=== PATIENT | male | born 1970 | race Caucasian/White ===

== ENCOUNTER 2022-03-07 16:33 | Inpatient (IN) | payer MEDICAID ==
[~2022-03-07] VITALS: Ht 170.2 cm; Wt 113.4 kg
[2022-03-07 20:02] LABS: BASOPHILS # (AUTO) 0.1 K/uL (0.0-0.2); BASOPHILS % (AUTO) 1.9 % (0.0-2.0); EOSINOPHILS # (AUTO) 0.3 K/uL (0.0-0.4); EOSINOPHILS % (AUTO) 9.6 % (0.0-4.0); HEMATOCRIT 26.6 % (36-54); HEMOGLOBIN 9.1 g/dL (14.0-18.0); LYMPHOCYTES # (AUTO) 0.8 K/uL (1.0-5.5); LYMPHOCYTES % (AUTO) 22.5 % (20.5-51.5); MEAN CORPUSCULAR HEMOGLOBIN 32 pg (27-31); MEAN CORPUSCULAR HGB CONC 34 % (32-36); MEAN CORPUSCULAR VOLUME 93 fL (79.0-98.0); MONOCYTES # (AUTO) 0.4 K/uL (0.0-1.0); MONOCYTES % (AUTO) 10.1 % (1.7-9.3); NEUTROPHILS # (AUTO) 1.9 K/uL (1.8-7.7); NEUTROPHILS % (AUTO) 55.9 % (40.0-70.0); PLATELET COUNT (AUTO) 99 K/uL (130-430); RED BLOOD CELL COUNT(AUTO) 2.86 MIL/uL (4.2-6.2); RED CELL DISTRIBUTION WIDTH 26.2 % (9.0-15.0); WHITE BLOOD COUNT (AUTO) 3.5 K/uL (4.8-10.8)
[2022-03-07 20:11] LABS: ANION GAP 11 (5-15); CALCIUM 8.7 mg/dL (8.4-11.0); CHLORIDE 108 mmol/L (98-107); CREATININE 0.84 mg/dL (0.55-1.30); GLUCOSE 85 mg/dL (70-99); UREA NITROGEN, BLOOD 14 mg/dL (8-21)
[2022-03-07 20:13] LABS: GFR AFRICAN AMERICAN 125 mL/min (>90)
[2022-03-07 20:20] LABS: ALANINE AMINOTRANSFERASE 19 U/L (12-78); ALCOHOL, BLOOD < 3 mg/dL (<10); ASPARTATE AMINOTRANSFERASE 41 U/L (10-37); INR 1.5 (0.80-1.20); PROTHROMBIN TIME 15.3 SECS (9.5-12.5); TOTAL BILIRUBIN 3.5 mg/dL (0.0-1.0)
[2022-03-07] MEDS ORDERED: LACTULOSE 20 GM/30 ML UDC RC ONE (20:45)
[2022-03-07 21:13] VITALS: BP_SYST 139
--- NOTE | 2022-03-07 21:23 | NUR ---
Patient to ER bed 05 to gown for evaluation. Side rails up. Report given to TY WHALEN.
--- NOTE | 2022-03-07 22:54 | NUR ---
Pt BIB BLS ambulance from [facility] with c/o increased agitation and ALOC. Pt noted cursing and yelling for no apparent reason. Attempted to assess pt, but pt was not cooperative at this time. Arrived in no acute distress. Breathing adequately on RA. Connected to monitor.
[2022-03-07] MEDS ORDERED: LACTULOSE 20 GM/30 ML UDC ONE ×2 (23:42→23:57)
--- NOTE | 2022-03-08 00:10 | NUR ---
Attempted to insert IV, but pt was uncooperative.
[2022-03-08] MEDS ORDERED: HALOPERIDOL LACTATE 5 MG/ML VIAL IM ONE (01:15)
--- NOTE | 2022-03-08 02:27 | NUR ---
[facility]
--- NOTE | 2022-03-08 04:42 | NUR ---
Admit bed requested Patient will be admitted to care of Dr. BALLESTEROS. Admitted to TELEMETRY unit. Diagnosis HEPATIC ENCEPHALOPATHY Inpatient (Yes or No) YES Observation (Yes or No) NO Orientation concerns or request close to nursing station (Yes or No) YES Covid Status NEGATIVE On vent or bipap NO Isolation requirements NO Needs a sitter NO From Home (Yes or if No enter name of facility) [facility] Requires Dialysis (Yes or No) NO Med Rec Completed (Yes of No) PENDING
[2022-03-08] MEDS: LACTULOSE 20 GM/30 ML UDC PO SCH ×3 (06:31→17:40)
--- NOTE | 2022-03-08 06:40 | NUR ---
# 22 gauge angiocath placed to R Wrist. Use of asceptic technique. Opsite placed over site. Blood return noted. Flushed with 10 cc of normal saline. No evidence of infiltration noted. Patient tolerated well.
--- NOTE | 2022-03-08 07:13 | NUR ---
Pt report endorsed to MARLEE Ramirez for continuity of care. Questions/Concerns answered.
[2022-03-08] MEDS ORDERED: BACEYEO OP (07:47)
[2022-03-08] MEDS ORDERED: LACT10SO6 PO (07:47)
[2022-03-08] MEDS ORDERED: FERR-69 PO (07:47)
[2022-03-08] MEDS ORDERED: BUME1TAB8 PO (07:47)
--- NOTE | 2022-03-08 07:48 | NUR ---
RECEIVED PT FROM MARLEE CRAWFORD. ASSUMED CARE.
--- NOTE | 2022-03-08 08:40 | NUR ---
ATTEMPTED TO STRAIGHT CATH PT FOR URINE SAMPLE, PT HAS HEALED TRAMA TO PENIS WITH EDEMA. UNABLE TO ACCESS URETHRA. MARLEE GILMORE CHARGE MADE AWARE.
[2022-03-08] MEDS ORDERED: RIFAXIMIN 550 MG TABLET PO ONE (10:00)
--- NOTE | 2022-03-08 10:18 | NUR ---
DR. BALLESTEROS AT BEDSIDE TO ASSESS PT. RECEIVED ORDER FOR DR. NIÑO UROLOGY CONSULT. ORDER CARRIED OUT.
[2022-03-08 10:30] LABS: BILIRUBIN,URINE 1+ (NEGATIVE); BLOOD, URINE NEGATIVE (NEGATIVE); CLARITY/URINE CLEAR (CLEAR); COLOR,URINE YELLOW (YELLOW); GLUCOSE,URINE NEGATIVE (NEGATIVE); KETONES,URINE 1+ (NEGATIVE); LEUKOCYTE ESTERASE ,URINE NEGATIVE (NEGATIVE); NITRITE, URINE NEGATIVE (NEGATIVE); PH,URINE 6.5 (5.0-8.0); PROTEIN URINE NEGATIVE (NEGATIVE)
[2022-03-08 10:39] LABS: BARBITURATE, URINE NEGATIVE (NEG <=200); BENZODIAZEPINE, URINE NEGATIVE (NEG <=150); CANNABINOID, URINE NEGATIVE (NEG <=50); COCAINE, URINE NEGATIVE (NEG <=150); METHAMPHETAMINES SCREEN,URINE NEGATIVE (NEG <=500); OPIATE, URINE POSITIVE (NEG <=100); PHENCYCLIDINE SCREEN,URINE NEGATIVE (NEG <=25); UR TRICYCLIC ANTIDEPRESSANTS NEGATIVE (NEG <=300); URINE AMPHETAMINE NEGATIVE (NEG <=500); URINE METHADONE NEGATIVE (NEG <=200); URINE OXYCODONE SCREEN NEGATIVE (NEG <=100); URINE PROPOXYPHENE SCREEN NEGATIVE (NEG <=300)
[2022-03-08] MEDS ORDERED: POTASSIUM CHLORIDE 20 MEQ/PKT PACKET PO ONE (11:00)
[2022-03-08] MEDS ORDERED: BUME1TAB31 PO (11:30)
[2022-03-08] MEDS ORDERED: ACET-2439 PO (11:30)
[2022-03-08] MEDS ORDERED: LACT10SO7 PO (11:30)
[2022-03-08] MEDS ORDERED: TRAM50TA2 PO (11:30)
[2022-03-08] MEDS ORDERED: POTA20PA30 PO (11:30)
[2022-03-08] MEDS ORDERED: ASPI-524 PO (11:30)
[2022-03-08] MEDS ORDERED: MELA1TAB14 PO (11:30)
[2022-03-08] MEDS ORDERED: SPIR25TA6 PO (11:30)
[2022-03-08] MEDS ORDERED: BACI15OI13 TP (11:30)
[2022-03-08] MEDS ORDERED: PRO40 PO (11:30)
[2022-03-08] MEDS ORDERED: AMLO5TAB4 PO (11:30)
[2022-03-08] MEDS ORDERED: RIFA550T5 PO (11:30)
[2022-03-08] MEDS ORDERED: FERR325T30 PO (11:30)
[2022-03-08 11:40] LABS: INR 1.6 (0.80-1.20)
[2022-03-08] MEDS ORDERED: SPIRONOLACTONE 25 MG TABLET (ALDACTONE) ONE (11:57)
--- NOTE | 2022-03-08 11:57 | NUR ---
PT HAD LARGE LOOSE BM, CLEANED, TURNED AND REPOSITIONED. SCHEDULED MEDS GIVEN AND TOLERATED WELL.
--- NOTE | 2022-03-08 12:00 | NUR ---
ADMISSION: The patient, ELIZABETH JHA, 51 y/o, M admitted by DARIUS BALLESTEROS MD, was given written information regarding hospital policies, unit procedures and contact persons. Obtained VS. Bed in low and locked position call light within reach, bed alarm on
[2022-03-08] MEDS ORDERED: SPIRONOLACTONE 50 MG TABLET (ALDACTONE) PO ONE (12:30)
--- NOTE | 2022-03-08 12:30 | NUR ---
Patient will be admitted to care of MARLEE LYNCH. Admitted to TELEMETRY unit. Will go to room 113B. Belongings list completed. Complete and up to date summary report printed. SBAR report to be given at bedside with opportunity for questions.
[2022-03-08 14:01] VITALS: BP_SYST 150
--- NOTE | 2022-03-08 14:07 | NUR ---
CLARIFICATION OF ORDERS PAGED DR BALLESTEROS FOR CLARIFICATION OF ORDERS NG TUBE VS. REG DIET AND SCD'S. PATIENT HAS 4+ PITTING EDEMA ON BILATERAL LOWER LEGS
--- NOTE | 2022-03-08 14:20 | NUR ---
CONSENT SPOKE WITH BROTHER NITISH ON TELEPHONE, INFORMED THAT HAS ORDERED NG TUBE AND A PICC LINE, BROTHER CONSENTED TO BOTH, SECOND RN VERIFIED
[2022-03-08 16:00] VITALS: BP_SYST 140
--- NOTE | 2022-03-08 17:00 | NUR ---
bm patient incontinent of bowel and bladder. Large BM loose. provided pipe care, changed linens. repositioned patient
--- NOTE | 2022-03-08 17:51 | NUR ---
SPOKE WITH DR BALLESTEROS REGARDING PATIENTS DIET, HOLD ON NG TUBE, AND NEW DIET ORDER GIVEN
--- NOTE | 2022-03-08 19:12 | NUR ---
CLOSING NOTE PROVIDED SBAR TO NIGHT RN. PATIENT IN BED, RESPIRATIONS EVEN, NON LABORED, BED IN LOW AND LOCKED POSITION, CALL LIGHT WITHIN REACH, BED ALARM ON. ENDORSED CARE TO NIGHT RN.
--- NOTE | 2022-03-08 19:15 | NUR ---
OPENING NOTES Patient resting in bed - no s/s pain or distress noted. Respirations even and unlabored - head of bed elevated. IV site patent - no s/s redness, infection, or infiltration. Bed locked and in lowest position. Call light within reach - bed alarm on.
[2022-03-08 20:00] VITALS: BP_SYST 128
[2022-03-08] MEDS: RIFAXIMIN 550 MG TABLET PO SCH (20:25)
[2022-03-08] MEDS: SPIRONOLACTONE 50 MG TABLET (ALDACTONE) PO SCH (20:25)
[2022-03-09] MEDS: LACTULOSE 20 GM/30 ML UDC PO SCH ×4 (01:41→18:29)
[2022-03-09 01:54] VITALS: BP_SYST 119
--- NOTE | 2022-03-09 07:49 | NUR ---
CLOSING NOTES Patient resting in bed - no s/s pain or distress noted. Respirations even and unlabored - head of bed elevated. IV site patent - no s/s redness, infection, or infiltration. Bed locked and in lowest position. Call light within reach - bed alarm on. Patient cleaned, linens changed by MADELIN Singh throughout shift.
[2022-03-09 08:04] LABS: EOSINOPHILS # (AUTO) 0.5 K/uL (0.0-0.4); EOSINOPHILS % (AUTO) 16.9 % (0.0-4.0); HEMATOCRIT 24.8 % (36-54); HEMOGLOBIN 8.4 g/dL (14.0-18.0); MEAN CORPUSCULAR HEMOGLOBIN 32 pg (27-31); MEAN CORPUSCULAR HGB CONC 34 % (32-36); MEAN CORPUSCULAR VOLUME 94 fL (79.0-98.0); MONOCYTES # (AUTO) 0.3 K/uL (0.0-1.0); MONOCYTES % (AUTO) 12.1 % (1.7-9.3); PLATELET COUNT (AUTO) 94 K/uL (130-430); RED BLOOD CELL COUNT(AUTO) 2.64 MIL/uL (4.2-6.2); WHITE BLOOD COUNT (AUTO) 2.9 K/uL (4.8-10.8)
--- NOTE | 2022-03-09 08:30 | NUR ---
PER PHARMACY, HOSPITAL DOES NOT HAVE CLOBETASOL IN STOCK AND WILL NOT HAVE IT IN STOCK UNTIL TOMORROW.
[2022-03-09 08:41] LABS: ALBUMIN 1.7 g/dL (3.4-4.8); CALCIUM 7.7 mg/dL (8.4-11.0); CREATININE 0.95 mg/dL (0.55-1.30); FREE T4 (FREE THYROXINE) 1.6 ng/dL (0.6-1.6); THYROID STIMULATING HORMONE 2.34 uIu/mL (0.34-4.82); TOTAL BILIRUBIN 3.2 mg/dL (0.0-1.0)
[2022-03-09] MEDS: SPIRONOLACTONE 50 MG TABLET (ALDACTONE) PO SCH ×2 (09:47→22:20)
[2022-03-09] MEDS: RIFAXIMIN 550 MG TABLET PO SCH ×2 (09:48→22:20)
[2022-03-09 11:36] VITALS: BP_SYST 127
[2022-03-09 13:01] LABS: BASOPHILS % (AUTO) 0.3 % (0.0-2.0); LYMPHOCYTES % (AUTO) 34.7 % (20.5-51.5); NEUTROPHILS # (AUTO) 1.1 K/uL (1.8-7.7)
[2022-03-09] MEDS: CLOBETASOL PROPIONATE 0.05% 15 GM CREAM..G. TP SCH ×2 (14:00→22:21)
--- NOTE | 2022-03-09 15:00 | NUR ---
DR. KISERIUM AWARE OF WBC 2.9, K 3.4 AND AMMONIA LEVEL, ABNORMAL LABS. STATES HE WILL PUT IN ORDERS.
[2022-03-09] MEDS ORDERED: POTASSIUM CHLORIDE 20 MEQ/PKT PACKET PO ONE (16:00)
[2022-03-09 17:25] VITALS: BP_SYST 119
--- NOTE | 2022-03-09 18:58 | NUR ---
PATIENT RESTING IN BED, RESPIRATIONS EVEN AND UL ON RA, DENIES PAIN/DISCOMFORT. NO SIGNIFICANT CHANGES THROUGHOUT SHIFT, ALL NEEDS MET. SAFETY MEASURES IN PLACE, CALL LIGHT IN REACH, WILL CONT TO MONITOR AND ENDORSE TO PM NURSE.
[2022-03-09 20:00] VITALS: BP_SYST 127
[2022-03-09] MEDS: FUROSEMIDE 20 MG/2 ML VIAL IVP SCH (22:22)
[2022-03-10] VITALS: BP_SYST 114
[2022-03-10] MEDS: LACTULOSE 20 GM/30 ML UDC PO SCH ×5 (00:26→23:44)
--- NOTE | 2022-03-10 06:07 | NUR ---
Pt awake and oriented x3. incontinent of urine and bm. kept clean and dry. pt has anasarca-generalized edema, 4+ edema on ble./scrotum and penis. Open wound on head of penis. v/s stable afebrile. On Lactulose 20 g every 6hr. 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 Pending u/s of ABDOMEN per day shift nurse.
[2022-03-10 07:39] LABS: CALCIUM 7.6 mg/dL (8.4-11.0); CREATININE 0.77 mg/dL (0.55-1.30)
[2022-03-10 08:00] VITALS: BP_SYST 139
[2022-03-10 08:26] LABS: BASOPHILS % (AUTO) 1.2 % (0.0-2.0); EOSINOPHILS # (AUTO) 0.4 K/uL (0.0-0.4); EOSINOPHILS % (AUTO) 16.1 % (0.0-4.0); HEMATOCRIT 23.8 % (36-54); HEMOGLOBIN 8.2 g/dL (14.0-18.0); LYMPHOCYTES # (AUTO) 0.6 K/uL (1.0-5.5); LYMPHOCYTES % (AUTO) 26.1 % (20.5-51.5); MEAN CORPUSCULAR HEMOGLOBIN 33 pg (27-31); MEAN CORPUSCULAR HGB CONC 35 % (32-36); MEAN CORPUSCULAR VOLUME 94 fL (79.0-98.0); MONOCYTES # (AUTO) 0.2 K/uL (0.0-1.0); MONOCYTES % (AUTO) 9.9 % (1.7-9.3); NEUTROPHILS # (AUTO) 1.1 K/uL (1.8-7.7); NEUTROPHILS % (AUTO) 46.7 % (40.0-70.0); PLATELET COUNT (AUTO) 89 K/uL (130-430); RED BLOOD CELL COUNT(AUTO) 2.54 MIL/uL (4.2-6.2); RED CELL DISTRIBUTION WIDTH 24.3 % (9.0-15.0)
[2022-03-10] MEDS: SPIRONOLACTONE 50 MG TABLET (ALDACTONE) PO SCH ×2 (09:18→22:34)
[2022-03-10] MEDS: RIFAXIMIN 550 MG TABLET PO SCH ×2 (09:18→22:34)
[2022-03-10] MEDS: FUROSEMIDE 20 MG/2 ML VIAL IVP SCH ×2 (09:19→22:35)
[2022-03-10] MEDS: CLOBETASOL PROPIONATE 0.05% 15 GM CREAM..G. TP SCH ×2 (09:20→22:36)
[2022-03-10 09:43] LABS: WHITE BLOOD COUNT (AUTO) 2.3 K/uL (4.8-10.8)
[2022-03-10 11:28] VITALS: BP_SYST 128
[2022-03-10 16:17] VITALS: BP_SYST 135
--- NOTE | 2022-03-10 18:00 | NUR ---
DR. KISERIUM AWARE OF ABNORMAL LABS AND US ABD RESULTS. NEW ORDER FOR POTASSIUM PO. WILL ADMINISTER
[2022-03-10] MEDS ORDERED: POTASSIUM CHLORIDE 20 MEQ/PKT PACKET PO ONE (18:30)
--- NOTE | 2022-03-10 19:10 | NUR ---
REPORT GIVEN TO PM NURSE FOR CONTINUITY OF CARE AT BEDSIDE.
--- NOTE | 2022-03-10 19:47 | NUR ---
Dietitian Recommendations * Ordered: Na2gm, mechanical soft diet * Encourage good PO intake Please refer to nutrition assessment for details, thanks! CC, MPH, RDN
[2022-03-10 20:00] VITALS: BP_SYST 129
[2022-03-11 00:56] VITALS: BP_SYST 153
[2022-03-11] MEDS: LACTULOSE 20 GM/30 ML UDC PO SCH ×2 (05:44→13:40)
--- NOTE | 2022-03-11 07:55 | NUR ---
INITIAL ROUNDS Received pt AAOX4, no s/s resp distress, no c/o pain or discomfort. Pt sitting up in bed feeding himself. Plan of care for the day reviewed with pt-pt verbalized his understanding. Noted BLE 4+ pitting edema, BLE with SCD in place. Noted pt with 2+ edema to penis with small wound. Pt had a large, soft bowel movement and voided, pt cleaned up, pt repositioned in bed with pillow support and heels off-loaded for skin care and comfort. Side rails up x3, bed alarm on and room across from nursing station for safety. Call light within reach.
[2022-03-11 08:10] VITALS: BP_SYST 142
[2022-03-11 08:30] LABS: HEMATOCRIT 27.1 % (36-54); HEMOGLOBIN 9.3 g/dL (14.0-18.0); MEAN CORPUSCULAR HEMOGLOBIN 32 pg (27-31); MEAN CORPUSCULAR HGB CONC 34 % (32-36); MEAN CORPUSCULAR VOLUME 93 fL (79.0-98.0); PLATELET COUNT (AUTO) 70 K/uL (130-430); RED BLOOD CELL COUNT(AUTO) 2.91 MIL/uL (4.2-6.2); RED CELL DISTRIBUTION WIDTH 24.1 % (9.0-15.0)
[2022-03-11 08:39] LABS: CALCIUM 7.1 mg/dL (8.4-11.0); CREATININE 0.94 mg/dL (0.55-1.30)
[2022-03-11] MEDS: SPIRONOLACTONE 50 MG TABLET (ALDACTONE) PO SCH (08:45)
[2022-03-11] MEDS: FUROSEMIDE 20 MG/2 ML VIAL IVP SCH (08:45)
[2022-03-11] MEDS: RIFAXIMIN 550 MG TABLET PO SCH (08:45)
[2022-03-11] MEDS: CLOBETASOL PROPIONATE 0.05% 15 GM CREAM..G. TP SCH (08:54)
[2022-03-11 08:55] LABS: WHITE BLOOD COUNT (AUTO) 1.8 K/uL (4.8-10.8)
[2022-03-11 09:20] LABS: LYMPHOCYTES % (MANUAL) 28 % (20-46)
[2022-03-11 09:21] LABS: BASOPHILS % (MANUAL) 0 % (0-2); EOSINOPHILS % (MANUAL) 8 % (0-7); MONOCYTES % (MANUAL) 20 % (0-11)
[2022-03-11 11:24] VITALS: BP_SYST 126
--- NOTE | 2022-03-11 13:15 | NUR ---
Discharge Planning: DCP faxed pt referral to [facility] [phone] DCP to follow up Addendum: 03/11/22 at 1504 by Romy Redman DP [facility] [phone] accepted pt to [facility] transport arranged with [facility] [phone] Ref #[id number] BLS 5:00pm time requested. DCP made CM aware and patient packet taken to nurse station.
[2022-03-11 15:52] VITALS: BP_SYST 125
--- NOTE | 2022-03-11 17:35 | NUR ---
PT TRANSFERRED Report given to Alphonso at [facility]. Transfer packet with Transfer Orders and Medication Reconciliation form given to EMT with report. Exitcare explained and provided. [facility] ID band removed, replaced with ID band with pt's name and . IV catheter removed, intact and dressing applied, no active bleeding. All belongings sent with patient. Patient left floor via gurney escorted by EMT in no distress.
== END 2022-03-11 17:30 ==
LOC: SED 16:33 → STU 03-08 04:32
PROVIDERS: ADMIT Family Medicine; ATTEND Family Medicine
PROC: 05HY33Z Insertion of Infusion Device into Upper Vein, Percutaneous Approach (ICD-10-PCS; principal; 2022-03-08)
DX: K76.82 Hepatic encephalopathy (principal); E43 Unspecified severe protein-calorie malnutrition; D61.818 Other pancytopenia; K74.60 Unspecified cirrhosis of liver; I10 Essential (primary) hypertension; Z20.822 Contact with and (suspected) exposure to COVID-19; F41.9 Anxiety disorder, unspecified; Z79.82 Long term (current) use of aspirin; Z79.899 Other long term (current) drug therapy; Z68.39 Body mass index [BMI] 39.0-39.9, adult
CPT/HCPCS: 36415; 70450-TC; 71045; 76376; 76700-TC; 76770; 80048; 80053; 80307; 81003; 82105; 82140; 82150; 83690; 83735; 83880; 84439; 84443; 84484; 85007; 85025; 85027; 85610-TC; 85730-TC; 87081; 93005; 99285; C1751; G0378; G0482; J1630; J1940